=== PATIENT | male | born 1995 | race Caucasian/White ===

== ENCOUNTER 2016-04-22 16:01 | Emergency (ER) ==
[2016-04-22] MEDS ORDERED: COMPAZINE IM ONE (16:31)
[2016-04-22] MEDS ORDERED: TORADOL IM ONE (16:31)
[2016-04-22] MEDS ORDERED: ZOFRAN ODT PO ONE (16:31)
[2016-04-22] MEDS ORDERED: BENADRYL IM ONE (16:31)
--- NOTE | 2016-04-22 16:36 | PROVIDER DOCUMENTATION ---
HPI-Headache - General Chief Complaint: Headache Stated Complaint: migraine Time Seen by Provider: 04/22/16 16:26 Source: patient Allergies/Adverse Reactions: Patient Allergies Allergy/AdvReac Type Severity Reaction Status Date / Time promethazine HCl * Allergy Mild VOMITING Verified 04/22/16 16:13 [From Phenergan] Home Medications: Home Medication List Medication Instructions Recorded Confirmed Last Taken Type Butalbital/APAP/Caffeine [Fioricet] 1 each PO Q4H PRN PRN #14 tablet 03/27/1604/22/16 06:30 Rx Ondansetron [Zofran] 4 mg PO Q6H PRN PRN #20 tablet 03/27/16 04/22/16 Unknown Rx Venlafaxine [Effexor] 37.5 mg PO DAILY 04/22/16 04/22/16 04/22/16 06:30 History - History of Present Illness-Headache Nature of Presenting Problem: 20 y/o WM c/o NEFF x 1 day. Pt states that he has a hx of migraines and took a fioricet this AM, but still has a NEFF. States R frontal lobe and stabbing in nature; states normal pattern of NEFF for him. Denies vomiting, but states photophobia. No other sxs reported. Review of Systems - Adult - REVIEW OF SYSTEMS - ADULT Constitutional: reports: no symptoms reported. denies: chills, fever Eyes: reports: no symptoms reported. denies: blurred vision, double vision Ears, Nose, Mouth & Throat: reports: no symptoms reported. denies: ear pain, nose pain Cardiovascular: reports: no symptoms reported. denies: chest pain, palpitations Respiratory: reports: no symptoms reported. denies: dyspnea on exertion, shortness of breath Gastrointestinal: reports: no symptoms reported. denies: nausea, vomiting Genitourinary: reports: no symptoms reported. denies: dysuria, frequency Musculoskeletal: reports: no symptoms reported. denies: joint pain, joint swelling Integumentary: reports: no symptoms reported. denies: nail changes, rash Neurological: reports: see HPI, headache/migraines. denies: numbness, paresthesia Psychiatric: reports: no symptoms reported Endocrine: reports: no symptoms reported. denies: cold intolerance, heat intolerance Hematologic/Lymphatic: reports: no symptoms reported. denies: easy bruising, prolonged bleeding Allergic/Immunologic: reports: no symptoms reported All Other Systems: Reviewed and Negative Past History - Adult - PAST MEDICAL HISTORY-ADULT Review of Records: reports: Nursing Assessment Review, Medications Reviewed Major Childhood Illnesses: reports: denies history Cardiovascular: reports: denies history Respiratory: reports: asthma Gastrointestinal: reports: denies history Obstetrical/Gynecological: reports: denies history Genitourinary: reports: denies history Musculoskeletal: reports: denies history Neurological: reports: headaches/migraines, Seizures/Epilepsy Psychiatric: reports: denies history Endocrine/Immune: reports: denies history - PRIOR SURGERIES/PROCEDURES Surgical/Procedure History: reports: reviewed, not pertinent - IMMUNIZATION STATUS Childhood Immunizations: See Nurse Assessment Flu Vaccine: See Nurse Assessment - FAMILY HISTORY Family History: reviewed, not pertinent - SOCIAL HISTORY Smoking: cigarettes, less than 1 pack/day Provider spent 3-5 mins advising pt. on dangers of tobacco.: Discussed manners to quit use, and f/u contacts for add'l counseling. Physical Exam- Neurological - Physical Exam-Neuro Initial Vital Signs Reviewed: Yes General Appearance: alert, mild distress Eye Exam: bilateral eye: normal inspection, PERRL, EOMI, photophobia HENMT: normocephalic/atraumatic, moist mucous membranes. negative: hearing deficit Head Injury: no evidence of injury Neck: supple, normal inspection Respiratory: no respiratory distress Extremity: normal gait, normal inspection. 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 negative: abnormal eye position , abnormal pupil position, abnormal speech, facial asymmetry, facial droop, facial paresthesias, facial weakness, gaze palsy, hearing deficit (R), hearing deficit (L), tongue deviation to R, tongue deviation to L Coordination/Gait: normal gait Motor/Sensory: no motor deficit. negative: sensory deficit, weak motor strength RUE, weak motor strength LUE Neurologic: sat math tutor II-XII nml as tested. negative: aphasia, motor weakness Integumentary: normal color, normal turgor, warm/dry Psych/Mental Status: normal mood/affect, normal thought content, normal thought process, oriented x 3 Progress - PLAN OF CARE/RESULTS Progress/Plan/Lab Results: Orders Category Date Time Status Diphenhydramine [Benadryl] Med 04/22/16 16:31 Discontinued 25 mg IM NOW ONE Ketorolac [Toradol] Med 04/22/16 16:31 Discontinued 60 mg IM NOW ONE Nalbuphine [Nubain] Med 04/22/16 17:13 Discontinued 10 mg IM NOW ONE Ondansetron Odt [Zofran Odt] Med 04/22/16 16:31 Discontinued 4 mg PO NOW ONE Prochlorperazine [Compazine] Med 04/22/16 16:31 Discontinued 10 mg IM NOW ONE Vital Signs Temp Pulse Resp BP Pulse Ox 04/22/16 16:05 98.0 F 84 18 138/90 100 promethazine HCl * [From Phenergan] Allergy (Mild, Verified 04/22/16 16:13) VOMITING Butalbital/APAP/Caffeine [Fioricet] 1 each PO Q4H PRN PRN #14 tablet 03/27/16 Ondansetron [Zofran] 4 mg PO Q6H PRN PRN #20 tablet 03/27/16 Venlafaxine [Effexor] 37.5 mg PO DAILY 04/22/16 Discussed f/u with specialist with pt. - REASSESSMENT Reassessment #1 Time Reassessed: 17:00 Status: improving (09/24 from 11/24, but states NEFF still present) Departure - Departure Time of Disposition Order: 16:38 DIAGNOSIS: Migraine Qualifiers: Migraine type: unspecified Status migrainosus presence: without status migrainosus Intractability: not intractable Qualified Code(s): G43.909 - Migraine, unspecified, not intractable, without status migrainosus Disposition: HOME 01 Certified Medical Emergency: Emergent Condition: Stable Additional Instructions: Drink plenty of fluids. Continue taking medications as directed. Follow up with specialist for further management. ED Follow Up Instructions: You have been treated by a care provider in the Emergency Department. These instructions are being provided to you so you can have an understanding of how to care for yourself upon discharge. Upon discharge from the Emergency Department, you are responsible for making arrangements for follow-up care by a physician of your choice. Take all prescribed medications as directed. Return to the Emergency Department immediately for any new or worsening symptoms. You may call the Physician Referral phone number at [phone] to obtain a list of Physicians who are taking new patients. Referrals: Golden Giron MD [Primary Care Provider] - Tiffanie Silva III, MD [STAFF PHYSICIAN] - Forms: Return to School/Parent Work Instructions: Migraine Headache, [id number] Attestation - Physician/ JOEY Attestation Patient care was provided by Advanced Practice Provider:: Yes Advanced Practice Provider:: Cherie Sanches Advanced Practice Provider documentation review:: The Mid-level provider documentation, treatment plan and medical decision making was reviewed by the physician who agrees with all treatment and medical decision making by the MLP.
[2016-04-22] MEDS ORDERED: NUBAIN IM ONE (17:13)
[2016-04-22 17:26] VITALS: BP 138/78
== END 2016-04-22 17:25 | disposition home or self-care (01) ==
LOC: ED 16:01
DX: G43.909 Migraine, unspecified, not intractable, without status migrainosus (principal); R51 Headache; F17.210 Nicotine dependence, cigarettes, uncomplicated; Z71.6 Tobacco abuse counseling; Z79.899 Other long term (current) drug therapy
CPT/HCPCS: 96372; J0780; J1200; J1885; J2300